=== PATIENT | female | born 1950 | race Caucasian/White ===

== ENCOUNTER → 2017-07-12 | Outpatient (CLI) | payer OTHER | PROVIDERS: ATTEND Otolaryngology | DX: R13.11 Dysphagia, oral phase (principal) | CPT/HCPCS: 92611-GN ==

== ENCOUNTER 2017-07-21 05:49 | Day surgery (SDC) | payer OTHER ==
[2017-07-21 06:40] VITALS: PULSE 68
--- NOTE | 2017-07-21 06:44 | CPEKG ---
Heart Rate: 68 RR Interval: 882 P-R Interval: 160 QRSD Interval: 90 QT Interval: 404 QTC Interval: 430 P Rico: 53 QRS Rico: 39 T Wave Rico: 58 EKG Severity - BORDERLINE ECG - EKG Impression: SINUS RHYTHM EKG Impression: BORDERLINE R WAVE PROGRESSION, ANTERIOR LEADS Electronically Signed By: Ayush Barrientos 23-Jul-2017 08:22:05
[2017-07-21] MEDS ORDERED: LIDOCAINE 1% 300 MG/30 ML SDV ONE (07:02)
[2017-07-21] MEDS ORDERED: BUPIVACAINE 0.5% 30 ML SDV ONE (07:02)
[2017-07-21] MEDS ORDERED: HEPARIN 10,000 UNIT/10 ML MDV (1,000 UNIT/ML) ONE (07:03)
[2017-07-21] MEDS ORDERED: MIDAZOLAM 2 MG/2 ML VIAL IVP ONE (07:08)
--- NOTE | 2017-07-21 07:08 | PDANEPAE ---
ANE Past Medical History - Cardiovascular History Hx Hypertension: No Hx Arrhythmias: No Hx Chest Pain: No Hx Coronary Artery / Peripheral Vascular Disease: No Hx CHF / Valvular Disease: No Hx Palpitations: No Cardiovascular History Comment: parkinsons - Pulmonary History Hx COPD: No Hx Asthma/Reactive Airway Disease: No Hx Recent Upper Respiratory Infection: No Hx Oxygen in Use at Home: No Hx Sleep Apnea: Yes Sleep Apnea Screening Result - Last Documented: Positive - Neurologic History Hx Cerebrovascular Accident: No Hx Seizures: Yes Hx Dementia: No Neurologic History Comment: seizure syndrome, none since 1997 - Endocrine History Hx Diabetes: No - Renal History Hx Renal Disorders: No - Liver History Hx Hepatic Disorders: No - Neurological & Psychiatric Hx Hx Neurological and Psychiatric Disorders: Yes Neurological / Psychiatric History Comment: parkinsons - Cancer History Hx Cancer: Yes Cancer History Comment: oral sqamous cell - Congenital Disorder History Hx Congenital Disorders: No - GI History Hx Gastrointestinal Disorders: Yes Gastrointestinal History Comment: feeding tube. currently has diarrhea R/T formula - Other Health History Other Health History: missing teeth upper right - Chronic Pain History Chronic Pain: Yes (right side jaw and ear) - Surgical History Prior Surgeries: 3 CA surgeries, feeding tube placement ANE Review of Systems Review of Systems: - Exercise capacity METS (RN): 2 METS ANE Patient History - Allergies Allergies/Adverse Reactions: amantadine Allergy (Unknown, Verified 07/20/17 12:42) Sulfa (Sulfonamide Antibiotics) Allergy (Unknown, Verified 07/20/17 12:42) - Home Medications Home Medications: Lamictal 07/20/17 [Last Taken Unknown] Tylenol 07/20/17 [Last Taken Unknown] - NPO status NPO Since - Liquids (Date): 07/20/17 NPO Since - Solids (Date): 07/20/17 - Anes Hx Anes Hx: no prior problems - Smoking Hx Smoking Status: Never smoked - Family Anes Hx Family Hx Anesthesia Complications: none ANE Labs/Vital Signs - Vital Signs Blood Pressure: 97/51 Heart Rate: 68 Respiratory Rate: 16 O2 Sat (%): 94 Height: 167.64 cm Weight: 68.039 kg ANE Physical Exam - Airway Neck exam: decreased ROM Mallampati Score: Class 4 Mouth exam: small mouth opening - Pulmonary Pulmonary: no respiratory distress, no rales or rhonchi, clear to auscultation - Cardiovascular Cardiovascular: regular rate and rhythym, no murmur, rub, or gallop ANE Anesthesia Plan Anesthesia Plan: MAC
[2017-07-21] MEDS ORDERED: PROPOFOL 200 MG/20 ML VIAL ONE (07:18)
[2017-07-21] MEDS ORDERED: fentaNYL 100 MCG/2 ML INJ ONE ×2 (07:18→09:18)
[2017-07-21] MEDS ORDERED: LIDOCAINE 2% 5 ML SDV ONE (07:24)
--- NOTE | 2017-07-21 07:25 | PDHPUP ---
History & Physical Update H&P update statement: This history and physical update is based on an assessment of the patient which was completed after admission or registration (within 24 hours), but prior to the surgery/procedure. H&P update: H&P reviewed & patient examined, no change in patient's condition since H&P completed
[2017-07-21] MEDS ORDERED: LR 500 ML IV PRN (07:27)
[2017-07-21] MEDS ORDERED: fentaNYL 100 MCG/2 ML INJ IVP PRN (07:27)
[2017-07-21] MEDS ORDERED: ONDANSETRON 4 MG/2 ML VIAL IVP PRN (07:27)
[2017-07-21] MEDS ORDERED: PROMETHAZINE HCL 25 MG/ML INJ IVP PRN (07:27)
[2017-07-21] MEDS ORDERED: HYDROCODONE/APAP 5/325 TAB PO PRN (07:27)
[2017-07-21] MEDS ORDERED: ACETAMINOPHEN 500 MG TAB PO PRN (07:27)
[2017-07-21] MEDS ORDERED: NALOXONE HCL 0.4 MG/ML INJ IVP PRN (07:27)
[2017-07-21] MEDS ORDERED: ceFAZolin 1 GM VIAL ONE ×2 (07:44)
--- NOTE | 2017-07-21 08:36 | POSTOPPROG ---
Post Op Note Date of Operation: 07/21/17 Surgeon: Ayush Ryder Anesthesiologist: Dr. Fernandez Anesthesia: IV Sedation Pre-op Diagnosis: SCC palate Post-op Diagnosis: same Procedure: Port Inf/Abcess present in the surg proc area at time of surgery?: No EBL: Minimal
--- NOTE | 2017-07-21 08:41 | POSTANESTH ---
Post Anesthetic Evaluation Cardiovascular Status: Normal, Stable, Similar to Pre-Op Cond Respiratory Status: Normal, Stable, Similar to Pre-op Cond. Level of Consciousness/Mental Status: Can Participate in Eval, Mildly Sleepy, Arousable Pain Control: Adequate, Prn Tx Ordered Nausea/Vomiting Control: Adequate, Prn Tx Ordered Complications Possibly Related to Anesthesia: None Noted
[2017-07-21 08:49] VITALS: TEMP 98.2
[2017-07-21 08:55] VITALS: RESP 14
--- NOTE | 2017-07-21 09:31 | GOP ---
[f rep st] OPERATIVE REPORT DATE OF OPERATION: 07/21/2017 SURGEON: Wang Ryder MD ANESTHESIA: Monitored anesthetic care per Dr. Fernandez. 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 POSTOPERATIVE DIAGNOSIS: Squamous cell cancer of the palate. PROCEDURE PERFORMED: Port-A-Cath placement. FINDINGS: The patient has good port placement on fluoroscopy. Port was functioning well. ESTIMATED BLOOD LOSS: 20 cc. INDICATIONS: A 66-year-old female with a history of squamous cell cancer. The patient is planning c hemotherapy. Risks and benefits of the procedure were discussed with the patient and her family, the ir questions answered and they wished to proceed. DESCRIPTION OF PROCEDURE: The patient was in the supine position. After the induction of adequate I V sedation, the patient was prepped and draped in the standard surgical fashion. Marcaine 0.5% was i njected throughout the left chest for local anesthesia. A finder needle was used to aspirate the lef t subclavian vein. After dark, nonpulsatile blood was aspirated, the wire threaded without difficult y. Placement was confirmed on fluoroscopy. Next, the pocket site was created using a transverse inci bean with a #15 blade. This was carried down to the subcutaneous tissue with Bovie cautery and blunt dissection. A pocket was created inferiorly in a similar fashion. The wire site was widened with a #11 blade. The catheter was then tunneled from pocket site to the wire site. The dilator and sheat h were then placed over the wire. Placement was confirmed on fluoroscopy. The wire and dilator were removed and the catheter was threaded through the sheath. The placement was then adjusted under fluo roscopy. The pre-flushed catheter and port were then attached after trimming the catheter. The cath eter was sutured to the anterior chest wall using 2-0 Prolene in an interrupted fashion. It aspirate d and flushed easily, and placement was once again confirmed under fluoroscopy. The pocket was close d in layers using 3-0 Vicryl in an interrupted fashion for the subcutaneous tissue. The skin at all s ites was closed with 4-0 Monocryl in a subcuticular stitch. The wound was dressed with Dermabond. T he patient was then taken to the postanesthesia care unit in stable condition. COMPLICATIONS: None. DRAINS: None. /[id number]/MODL
[2017-07-21] MEDS ORDERED: HYDROCODONE/APAP 5/325 TAB ONE (10:23)
[2017-07-21 10:32] VITALS: BP 101/67; O2SAT 95
== END 2017-07-21 10:30 | disposition home or self-care (01) ==
LOC: FSGY 05:49
PROVIDERS: ATTEND Surgery
PROC: 02HV33Z Insertion of Infusion Device into Superior Vena Cava, Percutaneous Approach (ICD-10-PCS; principal; 2017-07-21 07:30)
PROC: 0JH60XZ Insertion of Tunneled Vascular Access Device into Chest Subcutaneous Tissue and Fascia, Open Approach (ICD-10-PCS; principal; 2017-07-21 07:30)
DX: C05.9 Malignant neoplasm of palate, unspecified (principal); Z88.2 Allergy status to sulfonamides
CPT/HCPCS: C1788; J0690; J1642; J1644; J2250; J2704; J3010

== ENCOUNTER 2017-08-01 14:50 | Emergency (ER) | payer OTHER ==
[2017-08-01 15:00] VITALS: RESP 18
--- NOTE | 2017-08-01 16:18 | EDPHY ---
HPI/HX/ROS/PE/MDM Narrative: CHIEF COMPLAINT: G-tube malfunction HPI: This patient is a 66 year old female with history of Parkinson's disease and SCCA complaining of possible G-tube malfunction and diarrhea. She had recent chemotherapy and radiation for SCCA in her mouth and cheek and had a G-tube placed 06/29/17 at [facility] due to weight loss. For the past two weeks, she has noted bright yellow discharge coming back up out of her G- tube during feedings. Her at beside states that the feeding seems to slow down near the end, and then discharge quickly back out of the tube. The patient endorses some minor discomfort around the site but denies any redness or discharge around the ostium. She has also had diarrhea since placement of her G-tube, which her providers thought may be due to different formulas she has been trying over the past months. Her primary care provider recommended she present for evaluation. No fever, vomiting, abdominal pain, melena, hematochezia , or other associated symptoms. REVIEW OF SYSTEMS: Aside from elements discussed in the HPI, a comprehensive 10-point review of systems was reviewed and is negative. PMH: Parkinson's disease. Squamous cell carcinoma s/p chemotherapy and radiation. G-tube placed 06/29/17. SOCIAL HISTORY: . Lives in [place]. at bedside. PHYSICAL EXAM: General:Patient is alert, in no acute distress. ENT: Radiation scarring around mouth on the right. Eyes are normal to inspection. Neck: Normal inspection. Full range of motion. Respiratory:No respiratory distress. Breath sounds normal bilaterally. Cardiovascular: Regular rate and rhythm. Strong peripheral pulses. Normal cap refill. Abdomen: G-tube in place. No swelling around wound or discharge. The abdomen is nontender to palpation. There are no peritoneal signs. There are normal bowel sounds. Back: Normal to inspection. No tenderness to palpation. Skin: Normal color. No rash. Warm and dry. Extremities: Normal appearance. Full range of motion. Neuro: Oriented x3. Normal motor function. Normal sensory function. ED Course: 66 y/o female s/p G-tube placement 06/29/17 with history of Parkinson's disease and SCCA presents with frequent regurgitation from her G-tube during and after feedings. Plan for x-ray abdomen. Abdominal x-ray shows no obstruction. 17:[address] Dale, general surgeon. Plan for gastrograph to evaluate G- tube. 17:[address] Wells, radiologist. 17:[address] Wells, radiologist. PEG tube appears to be functioning properly, no evident abnormalities. 18:05 Reassessed patient. Discussed results. She is comfortable with discharge home and outpatient followup. - Data Points Imaging Results: Imaging Impressions Abdomen X-Ray 08/01/17 16:45 Impression: No free air or evidence for obstruction. Imaging: Discussed imaging studies w/ machine scallop cutter Radiologist General Initial Vital Signs: Initial Vital Signs Temperature (C) 36.8 C 08/01/17 14:56 Heart Rate 87 08/01/17 14:56 Respiratory Rate 18 08/01/17 14:56 Blood Pressure 105/70 08/01/17 14:56 O2 Sat (%) 98 08/01/17 14:56 O2 Delivery Mode Room Air Allergies/Adverse Reactions: amantadine Allergy (Unknown, Verified 07/20/17 12:42) Sulfa (Sulfonamide Antibiotics) Allergy (Unknown, Verified 07/20/17 12:42) Home Medications: Medication Instructions Recorded Lamictal 07/20/17 Tylenol 07/20/17 Departure - Departure Disposition: Home, Routine, Self-Care Clinical Impression: Malfunction of gastrostomy tube Condition: Good Instructions: How to Use and Care for Your PEG Tube (ED), Tube Feeding (DC) Additional Instructions: 1. Follow up with your primary care providers this week. We have referred you to a local GI specialist as well. 2. Return to the emergency department for leaking or redness around the tube site, vomiting, if your tube becomes dislodged, fever, or other worsening of condition. Referrals: Joesph Beasley MD [Medical Doctor] - As per Instructions Report Scribed for: Joesph Han Report Scribed by: Charisse Shields Date of Report: 08/01/17 Time of Report: 16:22 Physician Review and Approval Statement: Portions of this note were transcribed by an ED scribe. I personally performed the history, physical exam, and medical decision making; and confirm the accuracy of the information in the transcribed note.
[2017-08-01 18:14] VITALS: BP 106/78; PULSE 85; TEMP 98.4; O2SAT 95
== END 2017-08-01 18:14 | disposition home or self-care (01) ==
DX: K94.23 Gastrostomy malfunction (principal); G20 Parkinson's disease

== ENCOUNTER → 2017-10-12 | Outpatient (CLI) | payer OTHER ==
--- NOTE | 2017-10-12 13:30 | CPEEG ---
[f rep st] ELECTROENCEPHALOGRAM DATE OF STUDY: 10/12/2017 INTERPRETATION: This EEG is abnormal due to the presence of potentially epileptogenic abnormalities over the left frontotemporal head regions. These findings would be consistent with a focal seizure disorder. In addition, there is a moderate degree of focal slowing over the bitemporal head regions, maximal left. These findings are consistent with a moderate focal disturbance of cerebral function or a focal lesion in these regions. The findings of this study were directly communicated to the patient's primary neurologist, Dr. David Hernandez. REPORT: This EEG contains 9 Hz alpha to the posterior head regions. There is a moderate degree of bitemporal slowing composed of intermittent polymorphic theta and delta frequency activity. The primary feature of this recording was the presence of occasional left frontotemporal sharp waves and left temporal intermittent rhythmic delta activity (TIRDA). There was no specific additional activation with photic stimulation or hyperventilation. The patient became drowsy and fell asleep during this study. During drowsiness and sleep, there was continued activation of left frontotemporal sharp waves and left TIRDA. Findings of this study were directly communicated to the patient's primary neurologist, Dr. David Hernandez. /[id number]/MODL MTDD
== END ==
LOC: FCPNEURO 09:47
PROVIDERS: ATTEND Psychiatry & Neurology Neurology
DX: G40.909 Epilepsy, unspecified, not intractable, without status epilepticus (principal)

== ENCOUNTER → 2017-11-23 | Outpatient (CLI) | payer OTHER | PROVIDERS: ATTEND Otolaryngology | DX: R13.10 Dysphagia, unspecified (principal) | CPT/HCPCS: 92611-GN ==

== ENCOUNTER → 2018-02-24 | Outpatient (CLI) | payer OTHER ==
[~2018-02-24] MED LIST: IOPAMIDOL (ISOVUE 370) 100 ML BTL IV ONE
== END ==
LOC: FIMAGING 12:30
PROVIDERS: ATTEND Internal Medicine Hematology & Oncology
DX: R22.2 Localized swelling, mass and lump, trunk (principal)
CPT/HCPCS: 76000; Q9967

== ENCOUNTER → 2018-03-30 | Outpatient (CLI) | payer OTHER | LOC: FIMAGING 12:18 | PROVIDERS: ATTEND Surgery | DX: Z09 Encounter for follow-up examination after completed treatment for conditions other than malignant neoplasm (principal) ==

== ENCOUNTER → 2018-07-20 | Outpatient (CLI) | payer OTHER | LOC: FIMAGING 12:10 | PROVIDERS: ATTEND Internal Medicine Hematology & Oncology | DX: R05 Cough (principal); R91.8 Other nonspecific abnormal finding of lung field ==